=== PATIENT | female | born 1975 | race Caucasian/White ===

== ENCOUNTER → 2018-08-03 15:10 | Outpatient (CLI) | payer OTHER, SELFPAY ==
[2014-08-17 14:02] VITALS: BMI 29.1
--- NOTE | 2018-08-03 11:40 | ETH_PTH ---
PATIENT: TARIK CORDERO LOC: [facility] U#:[id number] AGE/SX: 49/F ROOM: RE08/03/[address]: Dr. Bill Beckford MD : [id number] BED: DIS: SPEC #: [id number] RECD: 08/03/18 15:10 STATUS: MARYBETH CEZAR #: [id number] SARAH: 08/03/18 11:[address]: Bill Beckford DEPT: SURGICAL PATHOLOGY RECD BY: Tiffani Francis ENTERED: 08/04/18 11:16 SP TYPE: ETH TISS OTHR DR: Dr. Sahil Kuhn MD [facility] Tissues: Ethmoid sinus, NOS Procedures: Surgery Specimen Level IV HEADER OPERATION: Submucous resection, bilateral inferior turbinates PRE-OP DIAGNOSIS: Nasal congestion, hypertrophy of nasal turbinate TISSUE SUBMITTED: Inferior turbinates MICROSCOPIC DIAGNOSIS Inferior turbinates: Scant fragments of benign minor salivary gland tissue with chronic inflammation, fibrovascular tissue and benign squamous epithelium. SJ:rubén 08/05/18 MICROSCOPIC DESCRIPTION Slides are reviewed. GROSS DESCRIPTION Received is one container labeled with the patient's name and not further designated. The specimen consists of multiple minute fragments of light more tissue that in aggregate measure 0.3 x 0.2 x <0.1 cm. The specimen is totally submitted in one cassette. / AM:rubén 08/04/18 TC:3 CPT: 05911
== END ==
PROVIDERS: Referring Provider Otolaryngology; Visit Provider Otolaryngology
DX: J34.3 Hypertrophy of nasal turbinates (principal); R09.81 Nasal congestion
CPT/HCPCS: 88305